=== PATIENT | female | born 1980 | race American Indian/Alaskan Native ===

== ENCOUNTER 2019-02-22 15:02 | Emergency (ER) | payer MEDICAID ==
--- NOTE | 2019-02-22 16:12 | Event Note ---
ED Screening Note Date of service: 02/22/19 Time: 16:10 ED Screening Note: 38 y o female presents with low abdominal pain x 1 week + nausea no f/c//v/d This initial assessment/diagnostic orders/clinical plan/treatment(s) is/are subject to change based on patients health status, clinical progression and re- assessment by fellow clinical providers in the ED. Further treatment and workup at subsequent clinical providers discretion. Patient/guardian urged not to elope from the ED as their condition may be serious if not clinically assessed and managed. Initial orders include: ua, upt
[2019-02-22 16:37] LABS: Bilirubin,Urine NEG (Negative); Blood,Urine NEG (Negative); Color,Urine Straw (Yellow); Mucus,Urine FEW /HPF; Protein,Urine <15 mg/dL mg/dL (Negative); Urobilinogen,Urine < 2.0 mg/dL (<2.0)
[2019-02-22 16:40] LABS: Basophils % (Auto) 0.6 % (0.0-1.8); Eosinophils % (Auto) 0.7 % (0.0-4.3); Hematocrit 38.1 % (30.3-42.9); Hemoglobin 12.5 gm/dl (10.1-14.3); Lymphocytes # (Auto) 1.8 K/mm3 (1.2-5.4); Lymphocytes % (Auto) 33.9 % (13.4-35.0); Mean Corpuscular HGB Conc 33 % (30-34); Mean Corpuscular Volume 79 fl (79-97); Monocytes # (Auto) 0.3 K/mm3 (0.0-0.8); Monocytes % (Auto) 6.5 % (0.0-7.3); Platelet Count 156 K/mm3 (140-440); Red Blood Count 4.83 M/mm3 (3.65-5.03); Red Cell Distribution Width 17.5 % (13.2-15.2)
[2019-02-22 16:47] LABS: HCG Qualitative,Urine Positive (Negative)
[2019-02-22 17:05] LABS: BUN/Creatinine Ratio 12; Blood Urea Nitrogen 6 mg/dL (7-17); Calcium 9.5 mg/dL (8.4-10.2)
[2019-02-22 17:06] LABS: Alanine Aminotransferase 12 units/L (7-56); Albumin 4.3 g/dL (3.9-5); Hemolysis Index 6
[2019-02-22] MEDS ORDERED: FAMOTIDINE 20 MG TAB PO ONE (18:58)
--- NOTE | 2019-02-22 19:28 | Emergency Department Report ---
ED Abdominal Pain HPI - General Chief Complaint: Abdominal Pain Stated Complaint: ABD PAIN/CHILLS/PREG Time Seen by Provider: 02/22/19 16:09 Source: patient Mode of arrival: Ambulatory Limitations: No Limitations - History of Present Illness Initial Comments: Patient is a [id number] Afro-[place] female who is approximately 5 weeks gestation who presents to the ED with abdominal pain diffusely for the last 2 weeks, and which has since located in the suprapubic area for the last 2 days. Patient is a complaint of nausea and bloating with pouching. Patient states that the pain gets worse with food leading to sore throat and a burning sensation in the epigastric area. Patient denies vomiting, fever, chills, vaginal bleeding, dysuria, urinary frequency and urgency, diarrhea, chest pain, shortness of breath, change in vision, vaginal discharge and a headache. MD Complaint: abdominal pain, other (nausea) -: Gradual, week(s) (2) Location: diffuse, epigastric Radiation: epigastric, suprapubic Migration to: no migration Severity: moderate Severity scale (0 -10): 5 Quality: cramping, aching Consistency: intermittent Improves With: nothing Worsens With: eating Associated Symptoms: denies other symptoms, nausea. denies: vomiting, diarrhea, fever, chills, constipation, hematemesis, hematochezia, melena, anorexia, syncope, other - Related Data LMP Date: 01/03/19 Previous Rx's Medication Instructions Recorded Last Taken Type Dicyclomine [Bentyl] 20 mg PO Q6H PRN #24 tablet 02/22/19 Unknown Rx raNITIdine HCl [Zantac] 150 mg PO Q12H #30 tablet 02/22/19 Unknown Rx Allergies Allergy/AdvReac Type Severity Reaction Status Date / Time No Known Allergies Allergy Unverified 02/22/19 15:04 ED Review of Systems ROS: Stated complaint: ABD PAIN/CHILLS/PREG Other details as noted in HPI Constitutional: denies: chills, fever Eyes: denies: eye pain, eye discharge, vision change ENT: denies: ear pain, throat pain Respiratory: denies: cough, shortness of breath, wheezing Cardiovascular: denies: chest pain, palpitations Endocrine: no symptoms reported Gastrointestinal: abdominal pain, nausea. denies: diarrhea Genitourinary: denies: urgency, dysuria, discharge Musculoskeletal: denies: back pain, joint swelling, arthralgia Skin: denies: rash, lesions Neurological: denies: headache, weakness, paresthesias Psychiatric: denies: anxiety, depression Hematological/Lymphatic: denies: easy bleeding, easy bruising ED Past Medical Hx - Past Medical History Previous Medical History?: Yes Additional medical history: IBS - Surgical History Past Surgical History?: No - Social History Smoking Status: Never Smoker Substance Use Type: None - Medications Home Medications: Home Medications Medication Instructions Recorded Confirmed Last Taken Type Dicyclomine [Bentyl] 20 mg PO Q6H PRN #24 tablet 02/22/19 Unknown Rx raNITIdine HCl [Zantac] 150 mg PO Q12H #30 tablet 02/22/19 Unknown Rx ED Physical Exam - General Limitations: No Limitations General appearance: alert, in no apparent distress - Head Head exam: Present: atraumatic, normocephalic, normal inspection - Eye Eye exam: Present: normal appearance, PERRL, EOMI Pupils: Present: normal accommodation - ENT ENT exam: Present: normal exam, normal orophraynx, mucous membranes moist, TM's normal bilaterally, normal external ear exam - Neck Neck exam: Present: normal inspection, full ROM. Absent: tenderness, lymphadenopathy - Respiratory Respiratory exam: Present: normal lung sounds bilaterally. Absent: respiratory distress, wheezes, rales, rhonchi, chest wall tenderness, accessory muscle use, decreased breath sounds - Cardiovascular Cardiovascular Exam: Present: regular rate, normal rhythm, normal heart sounds. Absent: systolic murmur, diastolic murmur, rubs, gallop - GI/Abdominal GI/Abdominal exam: Present: soft, normal bowel sounds. Absent: tenderness, guarding, rebound, hyperactive bowel sounds, organomegaly, bruit, pulsatile mass - Rectal Rectal exam: Present: deferred - Extremities Exam Extremities exam: Present: normal inspection, full ROM, normal capillary refill - Back Exam Back exam: Present: normal inspection, full ROM. Absent: tenderness, CVA tenderness (R), CVA tenderness (L), muscle spasm, vertebral tenderness - Neurological Exam Neurological exam: Present: alert, oriented X3, CN II-XII intact, normal gait, reflexes normal - Psychiatric Psychiatric exam: Present: normal affect, normal mood - Skin Skin exam: Present: warm, dry, intact, normal color. Absent: rash ED Course Vital Signs 02/22/19 16:09 Temperature 98.7 F Pulse Rate 87 Respiratory 16 Rate Blood Pressure 114/61 [Right] O2 Sat by Pulse 99 Oximetry - Reevaluation(s) Reevaluation #1: 02/22/19 19:26 This is a 38-year-old -[place] female who is approximately 5-6 weeks gestation and presents to the ED with epigastric and suprapubic abdominal pain for the last 2 weeks, worse in the last 2 days. In the ED, patient is alert and oriented 3 and is not in distress. Lab test results were reviewed and are all nonactionable. Patient was treated in the ED for GERD and transvaginal ultrasound also ordered. On reevaluation, patient pain is well-controlled. Transvaginal ultrasound shows uterus that measures 11.2 cm in length. Small fundal intrauterine is noted. Yolk sac and pole are detected. Cardiac activity was documented with heart rate of 158 bpm. Estimated gestational age by crown-rump length is 7 weeks 4 days with overall ultrasound dating of 8 weeks 1 day. A small crescentic hypoechoic apparent implantational bleed is seen adjacent to the sac measuring 2 cm in length but only 7 mm in thickness. Right ovary measures 3.4 cm in length and shows no abnormalities. Left ovary measures 4.3 cm in length and shows a complex corpus luteum type cyst measuring 2.4 cm with a thickened wall. No free fluid is seen. Early intrauterine with small adjacent implantational bleed Patient was discharged home and advised to maintain a complete pelvic rest, to follow-up with her BI[employer]ENT[employer] physician in 5-7 days for reevaluation. Patient was advised to return to the ED immediately if symptoms get worse. ED Medical Decision Making - Lab Data Result diagrams: 02/22/19 16:18 02/22/19 16:18 - Radiology Data Radiology results: report reviewed, image reviewed Findings [facility] [address] [place] [address] Ultrasound Report Signed Patient: KRISTA HOOK MR#: [id number] : 1980 Acct:[id number] Age/Sex: 38 / F ADM Date: 02/22/19 Loc: ED Attending Dr: Ordering Physician: LEYLA MCDONOUGH Date of Service: 02/22/19 Procedure(s): US OB <= 14 weeks fetus Accession Number(s): [id number] cc: LEYLA MCDONOUGH Early obstetrical ultrasound INDICATION: Early , abdominal pain COMPARISON: None Transabdominal and endovaginal studies were performed. Uterus measures 11.2 cm in length. Small fundal intrauterine is noted. Yolk sac and pole are detected. Cardiac activity was documented with heart rate of 158 bpm. Estimated gestational age by crown-rump length is 7 weeks 4 days with overall ultrasound dating of 8 weeks 1 day. A small crescentic hypoechoic apparent implantational bleed is seen adjacent to the sac measuring 2 cm in length but only 7 mm in thickness. Right ovary measures 3.4 cm in length and shows no abnormalities. Left ovary measures 4.3 cm in length and shows a complex corpus luteum type cyst measuring 2.4 cm with a thickened wall. No free fluid is seen. IMPRESSION: Early intrauterine with small adjacent implantational bleed Signer Name: Otoniel Hickman MD Signed: 02/22/2019 8:40 PM Workstation Name: [id number] Transcribed By: GJ Dictated By: Otoniel Hickman MD Electronically Authenticated By: Otoniel Hickman MD Signed Date/Time: 02/22/192039 DD/ 35 TD/TT: - Medical Decision Making This is a 38-year-old -[place] female who is approximately 5-6 weeks gestation and presents to the ED with epigastric and suprapubic abdominal pain for the last 2 weeks, worse in the last 2 days. In the ED, patient is alert and oriented 3 and is not in distress. Lab test results were reviewed and are all nonactionable. Patient was treated in the ED for GERD and transvaginal ultrasound also ordered. On reevaluation, patient pain is well-controlled. Transvaginal ultrasound shows uterus that measures 11.2 cm in length. Small fundal intrauterine is noted. Yolk sac and pole are detected. Cardiac activity was documented with heart rate of 158 bpm. Estimated gestational age by crown-rump length is 7 weeks 4 days with overall ultrasound dating of 8 weeks 1 day. A small crescentic hypoechoic apparent implantational bleed is seen adjacent to the sac measuring 2 cm in length but only 7 mm in t hickness. Right ovary measures 3.4 cm in length and shows no abnormalities. Left ovary measures 4.3 cm in length and shows a complex corpus luteum type cyst measuring 2.4 cm with a thickened wall. No free fluid is seen. Early intrauterine with small adjacent implantational bleed Patient was discharged home and advised to maintain a complete pelvic rest, to follow-up with her [employer]ENT[employer] physician in 5-7 days for reevaluation. Patient was advised to return to the ED immediately if symptoms get worse. - Differential Diagnosis GERD; , Abdominal pain; UTI; Constipation Critical care attestation.: If time is entered above; I have spent that time in minutes in the direct care of this critically ill patient, excluding procedure time. ED Disposition Clinical Impression: GERD (gastroesophageal reflux disease) Qualifiers: Esophagitis presence: without esophagitis Qualified Code(s): K21.9 - Gastro- esophageal reflux disease without esophagitis Abdominal pain in Qualifiers: Trimester: first trimester Qualified Code(s): O26.891 - Other specified pre gnancy related conditions, first trimester; R10.9 - Unspecified abdominal pain Disposition: DC- TO HOME OR SELFCARE Is pt being admited?: No Does the pt Need Aspirin: No Condition: Stable Instructions: Gastroesophageal Reflux Disease (ED), Abdominal Pain (ED) Additional Instructions: Maintain a complete pelvic rest, follow-up with your BIOMEDICAL SCIENTIST physician in 5-7 days for reevaluation. Return to the ED immediately if symptoms get worse. Prescriptions: Dicyclomine [Bentyl] 20 mg PO Q6H PRN #24 tablet PRN Reason: Pain , Severe (7-10) raNITIdine HCl [Zantac] 150 mg PO Q12H #30 tablet Time of Disposition: 21:49 Print Language: PRYDEINIG
--- NOTE | 2019-02-22 20:44 | Ultrasound Report ---
Early obstetrical ultrasound INDICATION: Early , abdominal pain COMPARISON: None Transabdominal and endovaginal studies were performed. Uterus measures 11.2 cm in length. Small fundal intrauterine is noted. Yolk sac and p ole are detected. Cardiac activity was documented with heart rate of 158 bpm. Estimated gestati onal age by crown-rump length is 7 weeks 4 days with overall ultrasound dating of 8 weeks 1 day. A sm all crescentic hypoechoic apparent implantational bleed is seen adjacent to the sac measuring 2 cm in length but only 7 mm in thickness. Right ovary measures 3.4 cm in length and shows no abnormalities. Left ovary measures 4.3 cm in lengt h and shows a complex corpus luteum type cyst measuring 2.4 cm with a thickened wall. No free fluid is seen. IMPRESSION: Early intrauterine with small adjacent implantational bleed Signer Name: Otoniel Hickman MD Signed: 02/22/2019 8:40 PM Workstation Name: [id number]
[2019-02-22 22:10] VITALS: BP 112/64
== END 2019-02-22 22:09 | disposition home or self-care (01) ==
LOC: ED 15:02
DX: O99.611 Diseases of the digestive system complicating pregnancy, first trimester (principal); K92.9 Disease of digestive system, unspecified; K21.9 Gastro-esophageal reflux disease without esophagitis; Z3A.01 Less than 8 weeks gestation of pregnancy
CPT/HCPCS: 36415; 76801; 80053; 81001; 81025; 84702; 85025; 99284

== ENCOUNTER 2019-09-06 05:20 | Outpatient (CLI) | payer MEDICAID ==
[2019-09-06 05:31] VITALS: BP 119/80
== END 2019-09-06 06:06 | disposition home or self-care (01) ==
LOC: TRG 05:20 → APU 05:25 → TRG 06:06
PROVIDERS: ATTEND Obstetrics & Gynecology
DX: O36.8130 Decreased fetal movements, third trimester, not applicable or unspecified (principal); O46.8X3 Other antepartum hemorrhage, third trimester; Z3A.36 36 weeks gestation of pregnancy
CPT/HCPCS: 59025